=== PATIENT | male | born 1935 | race African-American/Black ===

== ENCOUNTER → 2019-10-19 | Outpatient (CLI) | payer MEDICARE, OTHER ==
[~2019-10-19] MED LIST: AMLO2.5T45 MT; AMLO5TAB88 PO; ATOR10TA69 MT; ATOR40TA70 PO; CLOP75TA33 PO; HYDR12.54 MT; HYDR25TA PO; PANT40TA4 PO
== END | disposition home or self-care (01) ==
LOC: LAB 07:59
PROVIDERS: ATTEND Ophthalmology
DX: Z01.818 Encounter for other preprocedural examination (principal); Z11.59 Encounter for screening for other viral diseases
CPT/HCPCS: C9803; U0003

== ENCOUNTER 2019-10-20 07:28 | Day surgery (SDC) | payer MEDICARE, OTHER, MEDICAID ==
[~2019-10-20] VITALS: Ht 177.8 cm; Wt 86.2 kg
[~2019-10-20 07:28] MED LIST changes: -AMLO5TAB88 PO; -ATOR40TA70 PO; -CLOP75TA33 PO; -HYDR25TA PO; -PANT40TA4 PO
[2019-10-20] MEDS ORDERED: CYCLOPENTOLATE HCL 1% OPHTH DROPS 2ML LEFTEYE SCH (08:00)
[2019-10-20] MEDS ORDERED: PHENYLEPHRINE HCL 10% OPHTH DROPS 5ML LEFTEYE SCH (08:00)
[2019-10-20] MEDS ORDERED: TROPICAMIDE 1% OPHTH DROPS 15ML LEFTEYE SCH (08:00)
[2019-10-20] MEDS ORDERED: LACTATED RINGERS 1,000 ML IV SCH (08:00)
[2019-10-20] MEDS ORDERED: BALANCED SALT IRRIG SOLN COMB1 500ML OP ONE (09:30)
[2019-10-20] MEDS ORDERED: CLOP75TA33 PO (09:36)
[2019-10-20] MEDS ORDERED: ATOR40TA70 PO (09:36)
[2019-10-20] MEDS ORDERED: HYDR25TA PO (09:36)
[2019-10-20] MEDS ORDERED: AMLO5TAB88 PO (09:36)
[2019-10-20] MEDS ORDERED: PANT40TA4 PO (09:36)
[2019-10-20] MEDS ORDERED: HYALURONATE SODIUM 10 MG/ML 0.55ML SYRINGE IO ONE ×2 (09:43→10:48)
[2019-10-20] MEDS ORDERED: MIDAZOLAM HCL 2 MG/2 ML VIAL ONE (10:12)
[2019-10-20] MEDS ORDERED: FENTANYL CITRATE/PF 50MCG/ML 2ML VIAL ONE (10:12)
[2019-10-20] MEDS ORDERED: BALANCED SALT IRRIG SOLN COMB1 500ML OP NR (10:30)
[2019-10-20] MEDS ORDERED: CIPROFLOXACIN 0.3% OPHTH SOLN 2.5ML ONE (11:27)
[2019-10-20] MEDS ORDERED: BALANCED SALT IRRIG SOLN 15ML ONE (11:27)
[2019-10-20] MEDS ORDERED: ACETYLCHOLINE CHLORIDE INTRAOCULAR SOLUTION 1:100 ELECTROLYTE DILUENT IO ONE (11:27)
[2019-10-20] MEDS ORDERED: LIDOCAINE HCL/PF 2% 20 MG/ML 10ML VIAL ONE (11:27)
[2019-10-20] MEDS ORDERED: PREDNISOLONE ACETATE 1% OPHTH DROPS 5ML ONE (11:27)
[2019-10-20] MEDS ORDERED: TETRACAINE 0.5% OPHTH DROPS 4ML ONE (11:27)
== END 2019-10-20 12:30 | disposition home or self-care (01) ==
LOC: OR 07:28
PROVIDERS: ATTEND Ophthalmology
DX: H25.89 Other age-related cataract (principal); I10 Essential (primary) hypertension; E78.00 Pure hypercholesterolemia, unspecified; Z79.899 Other long term (current) drug therapy
CPT/HCPCS: 66984; J2250; J3010; J3490; V2632

== ENCOUNTER → 2019-11-13 | Outpatient (CLI) | payer MEDICARE, OTHER ==
[~2019-11-13] MED LIST changes: -AMLO2.5T45 MT; +AMLO5TAB88 PO; -ATOR10TA69 MT; +ATOR40TA70 PO; +CLOP75TA33 PO; -HYDR12.54 MT; +HYDR25TA PO; +PANT40TA4 PO
== END | disposition home or self-care (01) ==
LOC: LAB 09:22
PROVIDERS: ATTEND Ophthalmology
DX: Z03.818 Encounter for observation for suspected exposure to other biological agents ruled out (principal)
CPT/HCPCS: C9803; U0003

== ENCOUNTER 2019-11-17 08:36 | Day surgery (SDC) | payer MEDICARE, OTHER, MEDICAID ==
[~2019-11-17] VITALS: Ht 177.8 cm; Wt 86.2 kg
[~2019-11-17 08:36] MED LIST changes: +CYCLOPENTOLATE HCL 1% OPHTH DROPS 2ML RIGHTEYE ONE; +LACTATED RINGERS 1,000 ML IV SCH; +PHENYLEPHRINE HCL 10% OPHTH DROPS 5ML RIGHTEYE ONE; +TROPICAMIDE 1% OPHTH DROPS 15ML RIGHTEYE ONE
[2019-11-17] MEDS ORDERED: BALANCED SALT IRRIG SOLN COMB1 500ML OP ONE (09:00)
[2019-11-17] MEDS ORDERED: HYALURONATE SODIUM 10 MG/ML 0.55ML SYRINGE IO ONE ×2 (10:02→10:55)
[2019-11-17] MEDS ORDERED: MIDAZOLAM HCL 2 MG/2 ML VIAL ONE ×2 (10:19→10:39)
[2019-11-17] MEDS ORDERED: FENTANYL CITRATE/PF 50MCG/ML 2ML VIAL ONE (10:19)
[2019-11-17] MEDS ORDERED: PROPOFOL 200MG/20ML VIAL IV ONE (11:03)
[2019-11-17] MEDS ORDERED: LIDOCAINE HCL/PF 1% 10 MG/ML 5ML VIAL ONE (11:03)
[2019-11-17] MEDS ORDERED: KETOROLAC 30MG/ML VIAL ONE (11:18)
[2019-11-17] MEDS ORDERED: BALANCED SALT IRRIG SOLN 15ML ONE (14:05)
[2019-11-17] MEDS ORDERED: ACETYLCHOLINE CHLORIDE INTRAOCULAR SOLUTION 1:100 ELECTROLYTE DILUENT IO ONE (14:05)
[2019-11-17] MEDS ORDERED: PREDNISOLONE ACETATE 1% OPHTH DROPS 5ML ONE (14:05)
[2019-11-17] MEDS ORDERED: GENTAMICIN SULF 40MG/ML 2ML VIAL ONE (14:05)
[2019-11-17] MEDS ORDERED: LIDOCAINE HCL 2%/EPINEPHRINE 1:100,000 20 ML VIAL INFIL ONE (14:05)
[2019-11-17] MEDS ORDERED: CYCLOPENTOLATE HCL 1% OPHTH DROPS 2ML ONE (14:05)
[2019-11-17] MEDS ORDERED: TROPICAMIDE 1% OPHTH DROPS 15ML ONE (14:05)
[2019-11-17] MEDS ORDERED: CIPROFLOXACIN 0.3% OPHTH SOLN 2.5ML ONE (14:05)
[2019-11-17] MEDS ORDERED: TETRACAINE 0.5% OPHTH DROPS 4ML ONE (14:05)
[2019-11-17] MEDS ORDERED: PHENYLEPHRINE HCL 10% OPHTH DROPS 5ML ONE (14:05)
[2019-11-17] MEDS ORDERED: LIDOCAINE HCL/PF 2% 20 MG/ML 10ML VIAL ONE (14:05)
== END 2019-11-17 13:30 | disposition home or self-care (01) ==
LOC: OR 08:36
PROVIDERS: ATTEND Ophthalmology
DX: H25.89 Other age-related cataract (principal); I10 Essential (primary) hypertension; E78.00 Pure hypercholesterolemia, unspecified; Z79.899 Other long term (current) drug therapy; Z98.890 Other specified postprocedural states
CPT/HCPCS: 66984; J1580; J1885; J2250; J2704; J3010; J3490; V2630; V2632

== ENCOUNTER → 2022-03-06 | Day surgery (SDC) | payer OTHER ==
[~2022-03-06] VITALS: Ht 182.9 cm; Wt 92.5 kg
[~2022-03-06] MED LIST changes: +AMLO10TA80 PO; +BALANCED SALT IRRIG SOLN COMB1 500ML OP NR; +CHLO25TA2 PO; -CYCLOPENTOLATE HCL 1% OPHTH DROPS 2ML RIGHTEYE ONE; +FENTANYL CITRATE/PF 50MCG/ML 2ML VIAL ONE; +HYALURONATE SODIUM 10 MG/ML 0.55ML SYRINGE IO ONE; +LIDOCAINE HCL 1% 10 MG/ML 10ML VIAL ONE; +METH50TA5 PO; +MIDAZOLAM HCL 2 MG/2 ML VIAL ONE; -PANT40TA4 PO; +PANT40TA51 PO; -PHENYLEPHRINE HCL 10% OPHTH DROPS 5ML RIGHTEYE ONE; +PROPOFOL 200MG/20ML VIAL IV ONE; -TROPICAMIDE 1% OPHTH DROPS 15ML RIGHTEYE ONE
== END | disposition home or self-care (01) ==
LOC: OR 08:17
PROVIDERS: ATTEND Ophthalmology
DX: H40.9 Unspecified glaucoma (principal); I10 Essential (primary) hypertension; E78.00 Pure hypercholesterolemia, unspecified; Z79.899 Other long term (current) drug therapy; Z98.890 Other specified postprocedural states; Z20.822 Contact with and (suspected) exposure to COVID-19
CPT/HCPCS: 66180; 87426; C9803; J2250; J2704; J3010; J3490; C1762; C1783